=== PATIENT | female | born 1960 | race African-American/Black ===

== ENCOUNTER → 2016-11-08 | Outpatient (CLI) | payer BC ==
--- NOTE | ~2016-11-08 | MY29 ---
[facility] A Service of [facility] & [facility] RADIOLOGY TEXT RESULTS PATIENT: RAEANN BARKER LOCATION: [facility] : 62 UNIT #: [id number] AGE: [address]: Linda Banerjee MD SEX: F ORDER DR: [id number] [facility] [address] [place], [place] [address] [id number] O MR#: [id number] #: [id number] NAME: RAEANN BARKER : 1960 SEX: F STUDY DATE/TIME: 11/08/2016 9:36 UNIT: [facility] ROOM: STUDY DESCRIPTION: MY PAIGE SCREENING W/ CAD BILAT Attending Physician: Linda Banerjee M.D. Referring Physician: Linda Banerjee M.D. Ordering Physician: Shaq Bhagat Primary Care Physician: Linda Banerjee M.D. MEDICAL IMAGING REPORT This report is preliminary unless electronic signature is present EXAM Digital screening mammogram 11/08/2016 HISTORY 56-year-old woman positive family history, mother age 58. Annual screen. COMPARISON Mammograms date to 02/16/2007, with most recent 10/20/2015. FINDINGS Digital imaging of each breast was completed utilizing screening protocol. Review includes FDA-approved CAD device. Breast parenchyma is partially fatty replaced with residual fibroglandular opacities present centrally in each breast. Small, circumscribed nodule projecting central left breast on the CC view is noted. Small grouping of microcalcifications located central right breast also appears stable with benign characteristics. However, there is an interval occurring stellate opacity projecting mid outer middle-third left breast. This will require additional imaging and tissue sampling. This followup should include a true lateral projection along with high-resolution spot compression views and targeted left breast ultrasound. IMPRESSION Incomplete mammographic evaluation. Additional left breast imaging is indicated. This opacity as described in the full report will require tissue sampling as well. See complete report with recommendations. BIRADS 0, additional left breast imaging recommended. Patients over the age of 40 are entered into a reminder system with target due date for the next mammogram. A result letter will also be sent to the [facility] A Service of [facility] & [facility] RADIOLOGY TEXT RESULTS PATIENT: RAEANN BARKER LOCATION: [facility] : 62 UNIT #: [id number] AGE: [address]: Linda Banerjee MD SEX: F ORDER DR: patient. BIRADS: 0 Need Additional Imaging Evaluation and/or Prior Mammograms For Evaluation STAT * RESULT Dictated by... Darion Henry M.D. THIS IS AN ELECTRONICALLY VERIFIED REPORT Darion Henry M.D. at 11/08/2016 11:05 AM JUAN/robby TD: 11/08/2016 10:19 JOB #: [id number] MEDICAL IMAGING REPORT Page 1 of 1 COPY
== END | disposition home or self-care (01) ==
LOC: CWCC 09:00
DX: Z12.31 Encounter for screening mammogram for malignant neoplasm of breast (principal); Z80.3 Family history of malignant neoplasm of breast; R92.8 Other abnormal and inconclusive findings on diagnostic imaging of breast
CPT/HCPCS: G0202